=== PATIENT | female | born 1935 | race Caucasian/White ===

== ENCOUNTER → 2016-06-01 | Outpatient (CLI) | payer MEDICARE, BC ==
[~2016-06-01] MED LIST: ALTACE10 MG PO; ASPIRIN 81M81 MG/TA2 PO; BACTRIM 400 MG-1 TAB PO; CALCIUM 600MG+D1 TAB PO; CALTRATE-600 W600 MG PO; COLACE 100100 MG/CAP PO; COZAAR 50MG50 MG/TAB PO; FLONASE NASAL S16 GM NS; GLUCOSAMINE & C1 CA2 PO; GLUCOSAMINE/CHONDROI PO; GLUCOTROL 5M5 MG/TAB PO; GLUCOTROL10 MG PO; HCTZ 25MG TAB25 MG PO; HCTZ 25MG25 MG PO; METFORMIN ER500 MG PO; MIRAPEX 1MG; MUCINEX 60600 MG/TA1 PO; MULTI VITAMINS1 TAB PO; NEURONTIN100 MG/CAP PO; NOLVADEX20 MG PO; OMEGA-31 SGL PO; PERCOCET 325 MG1 TA2 PO; PRED FORTE; PRILOSEC 20MG20 MG PO; PROBIOTIC FORMU1 CAP PO; TYLENOL 500MG500 MG PO; TYLENOL 8 HR PO; VITAMIN C500 MG PO; VITAMIN D; VITAMIN D31000 IU PO
== END ==
LOC: MC.RAD 09:16
DX: Z12.31 Encounter for screening mammogram for malignant neoplasm of breast (principal); Z85.3 Personal history of malignant neoplasm of breast; Z90.12 Acquired absence of left breast and nipple
CPT/HCPCS: G0202